=== PATIENT | female | born 1950 | race Caucasian/White ===

== ENCOUNTER 2024-05-04 12:24 | Day surgery (SDC) | payer MEDICARE, SELFPAY ==
--- NOTE | 2024-05-04 | PATH_ITS ---
[facility] Accession Number: [id number] No. of containers..01 Tissue . 01 Material submitted: . rectosigmoid junction - RECTOSIGMOID POLYP . 01 Diagnosis: RECTOSIGMOID POLYP: Tubulovillous adenoma. No high-grade dysplasia or malignancy identified. [facility] 05/06/2024 1538 Local . 01 Electronically signed: . Joey Elmore MD, Pathologist NPI- [id number] . 01 Gross description: . Received in formalin with two patient identifiers and rectosigmoid polyp, are multiple rueda soft tissue fragments, the largest fragment measuring 1.6 x 1.4 x 1.2 cm, inked blue, serially sectioned, and submitted in A1-A3. The remaining fragments are filtered and submitted in A4. ([id number]) /MRV 05/06/2024 1538 Local . 01 Pathologist provided ICD-10: D12.7 . 01 CPT . 648589 Specimen Comment: A courtesy copy of this report has been sent to [phone] Performed at: 01 [facility] [address], [place], [place] [id number] MD Joey Elmore MD Phone: [phone]
[2024-05-04 12:46] VITALS: BP 157/94; PULSE 83; RESP 16; TEMP 36.4; O2SAT 100
[2024-05-04] MEDS: LACTATED RINGERS 1,000 ML 42 ML IV (13:01)
--- NOTE | 2024-05-04 13:02 | P.HP_ITS ---
History of Present Illness History of Present Illness Date Patient Seen: 05/04/24 Time Patient Seen: 13:02 Chief complaint: SDC Narrative: 73-year-old female with a prior history of unknown histology colon polyp in 2018 who was recommended for a 5 year recall. Other than some issues with what she perceives to be hemorrhoids no symptoms. [facility] Social History Smoking Status: Never smoker alcohol intake: never Meds Home Medications and Allergies Home Medications Medication Instructions Recorded Confirmed Type atorvastatin 10 mg tablet 10 mg PO ONCE PM 05/04/24 05/04/24 History nitroglycerin 0.4 mg sublingual mg sublingual 05/04/24 History tablet omeprazole 20 mg capsule,delayed 20 mg PO DAILY 05/04/24 05/04/24 History release Allergies Allergy/AdvReac Type Severity Reaction Status Date / Time Penicillins Allergy Verified 05/04/24 12:44 latex AdvReac Intermediate Rash Verified 05/04/24 12:44 Review of Systems Review of Systems ROS: Yes All systems reviewed with the patient and are negative except as otherwise documented Exam Vital Signs (past 8 hours): - 05/04/24 12:46 Temperature 97.5 F L Pulse Rate 83 Respiratory Rate 16 Blood Pressure 157/94 H Pulse Oximetry 100 Oxygen Delivery Method Room Air Oxygen Delivery Method Room Air Const General: cooperative HENMT Head: normal to inspection Eyes General: appearance normal, both eyes and all related structures Neck Neck: normal visual inspection Chest Chest: normal inspection of the chest Resp Effort & Inspection: normal respiratory effort Cardio Rate: regular rate GI Inspection: normal to inspection Skin General: no rashes or lesions noted Neuro General: patient alert and patient awake Extrem General: normal to inspection and no pedal edema Psych Appearance: grossly normal Assessment & Plan Assessment & Plan narrative: 73-year-old female with a personal history of colon polyps. Colonoscopy is pursued today.
--- NOTE | 2024-05-04 13:03 | PM.PREOP ---
Pre-operative Note Interval Note History & Physical reviewed/Exam performed by Physician: Yes Changes to H&P: No ASA Class (for procedural sedation): II
--- NOTE | 2024-05-04 15:02 | PM.OP.COLON ---
Operative Date/Time/Diagnoses Date of procedure: 05/04/24 Time of procedure: 15:02 Pre-op diagnosis: History of colon polyps Post-op diagnosis: same Procedure & Clinicians Study performed: Colonoscopy with hot snare polypectomy, tattoo placement submucosally, an Endoclip deployment. Same procedure as scheduled: Yes Indications: History of colon polyps Surgeon: Angel Miles Procedure Notes SCOAP/Timeout: Done Procedure in detail: After the risks and benefits were explained, written and verbal informed consent was obtained. The patient was brought into the procedure room and placed into the left lateral decubitus position. Please see anesthesia notes for sedation details. Digital rectal examination was accomplished. The scope was introduced into the patient and advanced under direct visualization to the cecum as identified by the appendiceal orifice and ileocecal valve. The scope was slowly withdrawn to carefully examine the mucosa for any defects or lesions. Comprehensive imaging was accomplished throughout the rectum including the dentate line. The colon was decompressed, the scope was then removed from the patient who tolerated the procedure well. Pediatric colonoscope Bowel prep adequate This procedure case was quite prolonged secondary to the complexity of polypectomy. Twenty-two modifier is therefore requested. Scope withdrawal time: 38 minutes Sedation minutes: 46 Complications: none Impression: The patient had some scattered diverticulosis in both the right and left colon. There was a large almost 2 cm semi sessile semi pedunculated polyp at the rectosigmoid junction approximately 12 cm from the anal verge. This polyp was removed by way of piecemeal hot snare polypectomy. The defect was closed with 4 Endoclips. The area just distal to the polypectomy was tattooed with less than a 0.5 cc of Suellen ink. No additional significant pathology was appreciated throughout. Colon was fairly lengthy somewhat redundant. Endoscopic diagnosis 1. Large rectosigmoid polyp 2. Diverticulosis Post-procedure Plan for aftercare: 1. Await histology. 2. As long as there are no concerning histopathologic features, surveillance colonoscopy is indicated for about 6 months' time in light of the piecemeal polypectomy here today. Disposition: PACU
[2024-05-04 15:05] VITALS: BP 84/50; PULSE 63; RESP 10; TEMP 36.4; O2SAT 98
[2024-05-04 15:10] VITALS: BP 96/55; PULSE 67; RESP 11; O2SAT 98
[2024-05-04 15:16] VITALS: BP 102/62; PULSE 68; RESP 14; O2SAT 97
[2024-05-04 15:22] VITALS: BP 103/69; PULSE 66; RESP 14; TEMP 36.2; O2SAT 99
== END 2024-05-04 15:35 | disposition home or self-care (01) ==
PROVIDERS: Family Provider Specialist; PCP Internal Medicine; Referring Provider Internal Medicine Gastroenterology; Visit Provider Internal Medicine Gastroenterology
PROC: 0DJD8ZZ Inspection of Lower Intestinal Tract, Via Natural or Artificial Opening Endoscopic (ICD-10-PCS; CPT 45378; principal; 2024-05-04 13:30)
DX: Z12.11 Encounter for screening for malignant neoplasm of colon (principal); Z86.010 Personal history of colon polyps; K57.30 Diverticulosis of large intestine without perforation or abscess without bleeding; D12.7 Benign neoplasm of rectosigmoid junction
CPT/HCPCS: 45381; 45385; J2704

== ENCOUNTER → 2025-01-08 14:02 | Outpatient (CLI) | payer MEDICARE, SELFPAY ==
--- NOTE | 2025-01-08 14:03 | DI.RAD.S_ITS ---
PROCEDURE: XR CHEST 2V INDICATIONS: growth on upper sternum, chronic chest pain TECHNIQUE: 2 views of the chest were acquired. COMPARISON: None. FINDINGS: Surgical changes and devices: Surgical clips overlie the left anterior chest wall and breast. Lungs and pleura: Lungs are clear. No pleural effusions or pneumothorax. Mediastinum: Mediastinal contours are normal. Heart size is normal. Atherosclerotic vascular calcifications are noted. Bones and chest wall: No suspicious bony abnormalities. Soft tissues appear unremarkable. IMPRESSION: No acute cardiopulmonary abnormality is seen. Dictated by: Tramaine Law M.D. on 01/09/2025 at 8:13 Approved by: Tramaine Law M.D. on 01/09/2025 at 8:14
== END ==
LOC: RAD 14:02
PROVIDERS: Family Provider Specialist; PCP Family Medicine; Referring Provider Family Medicine; Visit Provider Family Medicine
DX: R07.9 Chest pain, unspecified (principal); R22.2 Localized swelling, mass and lump, trunk; I70.0 Atherosclerosis of aorta
CPT/HCPCS: 71046

== ENCOUNTER → 2025-01-14 13:37 | Outpatient (CLI) | payer MEDICARE, SELFPAY | PROVIDERS: Family Provider Specialist; PCP Family Medicine; Referring Provider Family Medicine; Visit Provider Family Medicine | DX: R07.9 Chest pain, unspecified (principal); R06.02 Shortness of breath | CPT/HCPCS: 93242; 93244 ==

== ENCOUNTER → 2025-02-17 12:51 | Outpatient (CLI) | payer MEDICARE, SELFPAY ==
--- NOTE | 2025-02-17 12:51 | DI.RAD.S_ITS ---
PROCEDURE: XR DEXA AXIAL SKELETON INDICATIONS: osteoporosis screening COMPARISON: None. FINDINGS: Lumbar Spine: Bone mineral density 0.903 g/cm2, T score -1.6. Left Femoral Neck: Bone mineral density 0.656 g/cm2, T score-1.7. Left Hip: Bone mineral density 0.750 g/cm2, T score -1.6. Fracture Risk Calculation (when applicable): 10-year fracture risk of a major osteoporotic fracture 11 percent and of a hip fracture 2.3 percent. (T score greater or equal to -1.0 to: NORMAL) (T score from -1.1 to -2.4: OSTEOPENIA) (T score less than or equal to -2.5: OSTEOPOROSIS) IMPRESSION: Osteopenia with increased 10 year fracture risk. Follow-up guidelines as follows: Osteoporosis: Consider a repeat DEXA and Vertebral Fracture Assessment (VFA) exam in 2 years or sooner if medically necessary, to reassess this patient's status. Osteopenia: Consider a repeat DEXA in 2-3 years to reassess this patient's status, or if there is a new clinical indication. Normal: Consider a repeat DEXA in 5 years or sooner, or if there is a new clinical indication. All treatment decisions require clinical judgment and consideration of individual patient factors, including patient preferences, comorbidities, previous drug use, risk factors not captured in the FRAX model (e.g., frailty, falls, vitamin D deficiency, increased bone turnover, interval significant decline in bone density ) and possible under- or over-estimation of fracture risk by FRAX. In addition, the NOF Guide recommends that FDA-approved medical therapies be considered in postmenopausal women and men age >= 50 years with a: * Hip or vertebral (clinical or morphometric) fracture * T-score of <=-2.5 at the spine or hip * Ten-year fracture probability by FRAX of >= 3% for hip fracture or >=20% for major osteoporotic fracture. Dictated by: Luis Manuel Ortega M.D. on 02/17/2025 at 15:51 Approved by: Luis Manuel Ortega M.D. on 02/17/2025 at 15:52
== END ==
PROVIDERS: Family Provider Specialist; PCP Family Medicine; Referring Provider Family Medicine; Visit Provider Family Medicine
DX: M85.89 Other specified disorders of bone density and structure, multiple sites (principal); N95.9 Unspecified menopausal and perimenopausal disorder
CPT/HCPCS: 77080

== ENCOUNTER → 2025-04-06 12:33 | Outpatient (CLI) | payer MEDICARE, SELFPAY ==
--- NOTE | 2025-04-06 12:35 | DI.ECHO.S_ITS ---
[facility]---------+ [facility] : : [address] : : [place] : : [id number] : : Phone: [phone] Echocardiogram Report + + :Name: LOUISA BREEN V Study Date: 04/06/2025 Height: 65 in : :Hospital ReadingLocation: Weight: 142 lb : : Gender: Female BSA: 1.7 m2 : :: 1950 Age: 74 yrs BP: 124/79 mmHg: :Reason For Study: CHEST PAIN : :Ordering Physician: DOMINICK, : :JULIEN Performed By: Joaquim Pathak : :Referring: JULIEN TAN : + + Interpretation Summary The left ventricle is normal in size. Left ventricular systolic function appears normal without focal wall motion abnormalities. The ejection fraction is estimated to be 55-60%. Diastolic parameters suggest a relaxation abnormality of the left ventricle, consistent with probable normal filling pressures. The right ventricle is normal in size and function. The left atrial size is normal. There is no significant valvular heart disease. The aortic root is normal size. Procedure: A two-dimensional transthoracic echocardiogram with color flow and Doppler was performed. The study quality was technically good. There is no prior echocardiogram noted for this patient. The patient was in normal sinus rhythm during the exam. Left Ventricle: The left ventricle is normal in size. There is normal left ventricular wall thickness. There is no ventricular septal defect visualized. Left ventricular systolic function appears normal without focal wall motion abnormalities. The ejection fraction is estimated to be 55-60%. Diastolic parameters suggest a relaxation abnormality of the left ventricle, consistent with probable normal filling pressures. Right Ventricle: The right ventricle is normal in size and function. Atria: The left atrial size is normal. Right atrial size is normal. There is no Doppler evidence for an interatrial shunt. Mitral Valve: The mitral valve leaflets appear normal. There is no evidence of stenosis, fluttering, or prolapse. There is no mitral regurgitation noted. Aortic Valve: The aortic valve is trileaflet. The aortic valve opens well. No aortic regurgitation is present. Tricuspid Valve: The tricuspid valve is normal in structure and function. No tricuspid regurgitation. Pulmonic Valve: The pulmonic valve is not well seen, but is grossly normal. There is trace pulmonic regurgitation. There is no significant valvular heart disease. Great Vessels: The aortic root is normal size. The dimensions of the ascending aorta are normal. The pulmonary artery is normal size. The IVC is of normal diameter and collapses greater than 50% with a sniff. This suggests a low right atrial pressure of 3 mm Hg. Pericardium/ Pleura There is no pericardial effusion. There is no pleural effusion. MMode/2D Measurements & Calculations LVIDd: 4.4 cm LVOT diam: 2.1 cm LVIDs: 3.1 cm Ao root diam: 3.1 cm FS: 29.0 % asc Aorta Diam: 2.8 cm EPSS: 0.49 cm IVSd: 0.85 cm LVPWd: 0.85 cm LV granados. diameter/BSA (cm/m^2): 2.6 LV sys. diameter/BSA (cm/m^2): 1.8 LA A2 area: 15.6 cm2 RA long axis: 4.2 cm LA A4 area: 15.9 cm2 RA area: 10.2 cm2 LA length (vol): 4.8 cm RA vol: 21.2 ml LA vol: 44.1 ml RA : 12.4 ml/m2 LA vol index: 25.8 ml/m2 IVC diam: 1.1 cm RVD1 (basal): 2.8 cm RVD2 (mid): 2.3 cm TAPSE: 1.9 cm Doppler Measurements & Calculations Ao V2 max: 138.6 cm/sec LVOT Max Logan: 87.7 cm/sec Ao V2 mean: 95.1 cm/sec LV V1 max P.1 mmHg Ao max P.7 mmHg LV V1 VTI: 21.6 cm Ao mean P.1 mmHg VALERIE(I,D): 2.5 cm2 Ao V2 VTI: 29.0 cm VALERIE(V,D): 2.1 cm2 sev ratio: 0.75 VALERIE indexed to BSA (cm^2/m^2): 1.5 MV E max logan: 66.4 cm/sec TR max logan: 10.0 cm/sec MV A max logan: 92.5 cm/sec TR max P.04 mmHg MV E/A: 0.72 PA V2 max: 105.8 cm/sec Med Peak E' Logan: 5.2 cm/sec PA V2 mean: 70.4 cm/sec E/E' med: 12.7 PA mean P.2 mmHg Lat Peak E' Logan: 4.1 cm/sec PA pr(Accel): 17.3 mmHg E/E' lat: 16.4 E/e' average: 14.5 MV dec time: 0.23 sec SV(LVOT): 72.2 ml Reading Physician:09:24 AM
== END ==
PROVIDERS: Family Provider Specialist; PCP Family Medicine; Referring Provider Family Medicine; Visit Provider Family Medicine
DX: R07.9 Chest pain, unspecified (principal); I49.1 Atrial premature depolarization; Z85.3 Personal history of malignant neoplasm of breast
CPT/HCPCS: 93306

== ENCOUNTER → 2025-04-14 10:16 | Outpatient (CLI) | payer MEDICARE, SELFPAY ==
[2025-04-14 12:10] LABS: Add Manual Diff / Slide Review NO; Basophils Absolute Auto 0 /uL (0-100); Basophils Percent Auto 0.5 % (0-2); Eosinophils Absolute Auto 100 /uL (0-450); Eosinophils Percent Auto 2.2 % (2-4); Hematocrit 40.6 % (36-46); Lymphocytes Absolute Auto 2100 /uL (1100-4500); Lymphocytes Percent Auto 33.3 % (25-40); Mean Corpuscular HGB Conc 34.3 % (30-36); Mean Corpuscular Hemoglobin 30.1 PG (26-34); Mean Corpuscular Volume 87.8 fL (80-100); Monocytes Absolute Auto 500 /uL (0-900); Monocytes Percent Auto 7.9 % (3-14); Neutrophils Absolute Auto 3600 /uL (1500-7000); Neutrophils Percent Auto 56.1 % (50-75); Platelet Count 311 X10^3/uL (150-400); Red Blood Cell Count 4.63 X10^6/uL (4.0-5.2); Red Cell Distribution Width 14.4 % (11.6-14.8); White Blood Cell Count 6.4 X10^3/uL (4.5-11.0)
[2025-04-14 12:26] LABS: Alanine Aminotransferase 22 IU/L (<35); Albumin 4.5 g/dL (3.5-5.0); Albumin Globulin Ratio 1.4 (1.0-2.8); Alkaline Phosphatase 96 U/L (38-126); Aspartate Aminotransferase 36 IU/L (14-36); BUN Creatinine Ratio 26.4 (6-22); Bilirubin Total 0.8 mg/dL (0.2-1.3); Blood Urea Nitrogen 23 mg/dL (7-17); Calcium 9.5 mg/dL (8.4-10.2); Carbon Dioxide 29 mmol/L (22-32); Chloride 105 mmol/L (98-107); Cholesterol 172 mg/dL (140-199); Estimated Glomerular Filt Rate > 60 mL/min (>60); Globulin 3.3 g/dL (1.7-4.1); Glucose 90 mg/dL (70-99); HDL Cholesterol 55 mg/dL (40-60); HEMOLYSIS < 15 (0-50); LDL Cholesterol Calculated 99 mg/dL (<100); Potassium 5.1 mmol/L (3.4-5.1); Sodium 139 mmol/L (137-145); Total Protein 7.8 g/dL (6.3-8.2); Triglycerides 89 mg/dL (35-150)
[2025-04-14 12:56] LABS: TSH w/ Reflex to FT4 1.26 uIU/mL (0.47-4.68)
== END ==
PROVIDERS: PCP Family Medicine; Referring Provider Family Medicine; Visit Provider Family Medicine
DX: E78.5 Hyperlipidemia, unspecified (principal); R07.9 Chest pain, unspecified; K21.9 Gastro-esophageal reflux disease without esophagitis
CPT/HCPCS: 36415; 80053; 80061; 84443; 85025

== ENCOUNTER 2025-04-21 11:23 | Day surgery (SDC) | payer MEDICARE, SELFPAY ==
--- NOTE | 2025-04-21 | PATH_ITS ---
[facility] Accession Number: [id number] No. of containers..02 Tissue . 01 Material submitted: . PART A: esophagus - ESOPHAGEAL PART B: stomach - STOMACH . 01 Clinical history: . A: R/O EOE B: R/O H PYLORI . 01 Diagnosis: A. ESOPHAGUS, BIOPSY: Squamous epithelium with no diagnostic abnormality. Intraepithelial eosinophils are not increased. Negative for dysplasia and malignancy. . B. STOMACH, BIOPSY: Gastric oxyntic mucosa with moderate chronic inflammation and increased intraepithelial lymphocytes; please see comment. Negative for Helicobacter organisms by immunohistochemistry. Negative for intestinal metaplasia. Negative for dysplasia or malignancy. [facility] 04/27/2025 1311 Local . 01 Comment: B. The findings in the gastric biopsy raise the possibility of low burden Helicobacter pylori gastritis despite the lack of organisms seen on routine or immunohistochemical stain. 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 . As part of routine corporate quality engineer, Dr. Elmore has reviewed part B of this case and agrees with the interpretation above. . 01 Electronically signed: . Ha Sanabria MD, PhD, Pathologist NPI- [id number] . 01 Gross description: . Part A: ESOPHAGEAL: Received in formalin are 2 fragment(s) of rueda, soft tissue measuring 0.2 x 0.2 x 0.2 cm to 0.4 x 0.2 x 0.2 cm submitted entirely in 1 cassette(s) Part B: STOMACH: Received in formalin is 1 fragment(s) of rueda, soft tissue measuring 0.3 x 0.3 x 0.2 cm submitted entirely in 1 cassette(s) /HEBERT 04/23/2025 0024 Local . 01 Microscopic: . B. No Helicobacter organisms are identified on an immunohistochemical stain. A control stain shows appropriate reactivity. . * This test was developed and the performance characteristics were validated by [employer]. It has not been cleared or approved by the U.S. Food and Drug Administration. . 01 Pathologist provided ICD-10: R13.10, K29.70 . 01 CPT . 412980, 388321, B36801 Specimen Comment: A courtesy copy of this report has been sent to [phone] Performed at: [address] [id number] MD Joey Elmore MD Phone: [phone]
[2025-04-21 11:48] VITALS: BP 153/90; PULSE 105; RESP 16; TEMP 36.2; O2SAT 98
--- NOTE | 2025-04-21 12:14 | P.HP_ITS ---
History of Present Illness History of Present Illness Date Patient Seen: 04/21/25 Chief complaint: [place] Narrative: GE reflux with substernal dysphagia and history of colon polyps [facility] Medical History (Updated 03/15/25 @ 07:37 by Sera Ashley MA) Benign neoplasm of skin of other and unspecified parts of face (07/07/03) GERD (gastroesophageal reflux disease) Plantar warts (~1970) Asthma (~1953) Headache Fractures (~2004) Mumps (~1957) Measles (~1957) Chicken pox (~1957) Herpes (~1976) Skin cancer (~2016) Breast cancer Surgical History Anesthesia Basal cell carcinoma (~10/2017) History of breast surgery (~04/29/17) History of hysterectomy (~04/03/22) Family History Father Stroke Mother History of heart disease Brother Thyroid disease Sister Cancer Grandfather Cancer Grandmother Cancer Grandfather History of heart disease Grandmother Mental health problem Social History (Updated 04/14/25 @ 07:43 by Sera Ashley MA) marital status: household members: spouse lives independently: Yes occupational status: unemployed Smoking Status: Never smoker alcohol intake: never substance use type: does not use Meds Home Medications and Allergies Home Medications ?Medication ?Instructions ?Recorded ?Confirmed ?Type atorvastatin 10 mg tablet 10 mg PO BEDTIME #90 tabs 04/21/25 Rx nitroglycerin 0.4 mg sublingual 0.4 mg sublingual Q5-1 5M PRN 01/08/25 04/21/25 H istory tablet omeprazole 20 mg capsule,delayed 20 mg PO DAILY GERD # 90 caps 01/08/25 04/21/25 Rx release Allergies Allergy/AdvReac Type Severity Reaction Status Date / Time Penicillins Allergy don't Verified 04/21/25 11:54 remember latex AdvReac Intermediate Rash Verified 04/21/25 11:54 Exam Vital Signs (past 8 hours): - 04/21/25 11:48 Temperature 97.2 F L Pulse Rate 105 H Respiratory Rate 16 Blood Pressure 153/90 H Pulse Oximetry 98 Oxygen Delivery Method Room Air Oxygen Delivery Method Room Air Narrative Exam Narrative: Oropharynx free of lesions Chest clear to auscultation percussion Cardiac exam reveals no S3 or murmur Assessment & Plan Assessment & Plan narrative: Longstanding history of GE reflux with occasional difficulty with swallowing solid food in the substernal position. Risks, benefits, alternatives have been explained. Rule out eosinophilic esophagitis or peptic stricture History of colon polyps need for follow-up colonoscopy. Risks benefits and alternatives have been explained. Time-Based Coding :: [TOTAL MINUTES] spent with patient and on the chart (including review of chart, obtaining history, exam, reviewing outside data, placing orders, documenting exam and treatment plan, and counseling patient) on [DATE]. [employer] Director Document charge(s): No
--- NOTE | 2025-04-21 12:15 | P.OP.EGD&C_ITS ---
Operative Date/Time/Diagnoses Date of procedure: 04/21/25 Time of procedure: 12:51 Pre-op diagnosis: See indication and findings Post-op diagnosis: same Procedure & Clinicians Study performed: EGD and colonoscopy Same procedure(s) as scheduled: Yes Indications: Substernal dysphagia with reflux and history of colon polyps Surgeon: Adam Machuca Procedure Notes Procedure in detail: After informed consent was obtained the patient was placed in left lateral decubitus position. The video upper scope was placed into the oropharynx and with the patient's help swallowed into the esophagus. The esophagus stomach and duodenal were carefully examined. , on withdrawal the retroflexed view the GE junction was performed. The scope was removed. The patient tolerated procedure well. The patient was then turned and the colonoscope substituted. This is easily passed the cecum. Preparation was good. On slow withdrawal mucosa was carefully examined. The scope was removed. The patient tolerated the procedure well. Blood loss none Complications none Findings EGD 1. Multiple rings in the mid to distal esophagus biopsies taken to rule out eosinophilic esophagitis 2. GE junction with mild Schatzki's ring. This was located approximately 35 cm from the incisors. This was dilated to [address] [place] without difficulty 3. 3 cm hiatal hernia 4. Patchy gastric erythema biopsies taken to rule out Helicobacter 5. Normal duodenal bulb and sweep Colonoscopy 1. Tattoo present in the high rectum without any evidence of neoplasia 2. Otherwise negative colonoscopy to cecum Will be in touch regarding her esophageal issues. Also checking on how she is done after having her esophageal dilation. As for colonoscopy she will need follow-up procedure in 5 years
[2025-04-21] MEDS: LACTATED RINGERS 1,000 ML 120 ML IV (12:21)
[2025-04-21 12:53] VITALS: BP 108/70; PULSE 76; RESP 12; TEMP 36.4; O2SAT 96
[2025-04-21 12:59] VITALS: BP 100/48; PULSE 77; RESP 12; O2SAT 100
[2025-04-21 13:03] VITALS: BP 116/77; PULSE 69; RESP 16; O2SAT 99
[2025-04-21 13:08] VITALS: BP 130/73; PULSE 70; RESP 14; O2SAT 98
== END 2025-04-21 13:19 | disposition home or self-care (01) ==
PROVIDERS: PCP Family Medicine; Referring Provider Internal Medicine Gastroenterology; Visit Provider Internal Medicine Gastroenterology
PROC: 0DJ08ZZ Inspection of Upper Intestinal Tract, Via Natural or Artificial Opening Endoscopic (ICD-10-PCS; CPT 43248; principal; 2025-04-21 12:45)
PROC: 0DJD8ZZ Inspection of Lower Intestinal Tract, Via Natural or Artificial Opening Endoscopic (ICD-10-PCS; CPT 45378; 2025-04-21 12:45)
DX: Z12.11 Encounter for screening for malignant neoplasm of colon (principal); Z86.0100 Personal history of colon polyps, unspecified; R13.10 Dysphagia, unspecified; K21.9 Gastro-esophageal reflux disease without esophagitis; K22.2 Esophageal obstruction; K44.9 Diaphragmatic hernia without obstruction or gangrene
CPT/HCPCS: 43248; 43239; G0105; J2704